=== PATIENT | male | born 1950 | race American Indian/Alaskan Native ===

== ENCOUNTER 2020-04-08 10:50 | Outpatient (CLI) | payer BC, MEDICARE ==
--- NOTE | 2020-04-08 13:17 | Cat Scan Report ---
CT ABDOMEN AND PELVIS WITHOUT CONTRAST INDICATION / CLINICAL INFORMATION: R97.2 R31.0 GROSS HEMATURIA AND ELEVATED PSA. TECHNIQUE: Axial CT images were obtained through the abdomen and pelvis without IV contrast. All CT scans at this location are performed using CT dose reduction for ALARA by means of automated exposure control. COMPARISON: 08/20/2015 FINDINGS: LOWER CHEST: Unremarkable LIVER: Unremarkable GALLBLADDER/BILIARY TREE: Unremarkable PANCREAS: Unremarkable SPLEEN: Unremarkable ADRENALS: Unremarkable KIDNEYS / URETER: No urolithiasis or hydronephrosis. URINARY BLADDER: Bladder is partially decompressed, though grossly unremarkable. REPRODUCTIVE ORGANS: Prostate is markedly enlarged, measuring 7.3 cm transverse. There is median lobe hypertrophy with suggestion of TURP defect. STOMACH / SMALL BOWEL: Stomach and small bowel are normal in caliber. No evidence of bowel inflammati on. COLON: Colonic diverticulosis without evidence of diverticulitis. The appendix is normal in caliber. LYMPH NODES: No significant adenopathy. VASCULATURE: Moderate atherosclerotic calcification without acute abnormality. OTHER: No free air, free fluid, or focal fluid collection is identified. SKELETAL SYSTEM: Extensive degenerative changes of the spine. No acute osseous findings. IMPRESSION: 1. No acute process. No urolithiasis or hydronephrosis. 2. Marked prostatomegaly, measuring 7.3 cm. There is median lobe hypertrophy with suggestion of TURP defect. 3. Other incidental findings as above. Signer Name: oYni Dunn MD Signed: 04/08/2020 1:13 PM Workstation Name: [id number]
== END 2020-04-08 10:51 | disposition home or self-care (01) ==
LOC: CT 10:50
PROVIDERS: ATTEND Urology
DX: N40.0 Benign prostatic hyperplasia without lower urinary tract symptoms (principal); K57.30 Diverticulosis of large intestine without perforation or abscess without bleeding; I70.0 Atherosclerosis of aorta; M47.816 Spondylosis without myelopathy or radiculopathy, lumbar region
CPT/HCPCS: 74176

== ENCOUNTER 2020-06-18 12:00 | Outpatient (CLI) | payer BC, MEDICARE ==
[2020-06-18 15:37] VITALS: BP 176/75
[2020-06-23] MEDS ORDERED: LACTATED RINGERS 1,000 ML IV SCH (06:00)
== END 2020-06-18 14:00 | disposition home or self-care (01) ==
LOC: LAB 12:00 → EDSTATUS 06-23 14:30
PROVIDERS: ATTEND Urology
DX: Z20.822 Contact with and (suspected) exposure to COVID-19 (principal); Z86.19 Personal history of other infectious and parasitic diseases; Z53.8 Procedure and treatment not carried out for other reasons
CPT/HCPCS: U0003

== ENCOUNTER 2020-12-06 07:27 | Observation (INO) | payer BC, MEDICARE ==
[2020-12-02 10:32] LABS: Hematocrit 31.9 % (35.5-45.6); Hemoglobin 10.4 gm/dl (11.8-15.2); Mean Corpuscular HGB Conc 33 % (32-34); Mean Corpuscular Volume 81 fl (84-94); Platelet Count 239 K/mm3 (140-440); Red Blood Count 3.93 M/mm3 (3.65-5.03); Red Cell Distribution Width 13.7 % (13.2-15.2)
[2020-12-02 10:41] LABS: Alanine Aminotransferase 13 units/L (7-56); Albumin 3.9 g/dL (3.9-5); BUN/Creatinine Ratio 14; Blood Urea Nitrogen 11 mg/dL (9-20); Hemolysis Index 6
[~2020-12-06 07:27] MED LIST: ACETAMINOPHEN 500 MG TAB PO SCH; LACTATED RINGERS 1,000 ML IV SCH
[2020-12-06] MEDS ORDERED: ONDANSETRON 4 MG/2 ML INJ IV PRN ×2 (08:07→12:00)
--- NOTE | 2020-12-06 08:10 | Anesthesia Consultation ---
Anesthesia Consult and Med Hx Date of service: 12/06/20 - Airway Anesthetic Teeth Evaluation: Partials ROM Head & Neck: Adequate Mental/Hyoid Distance: Adequate Mallampati Class: Class III Intubation Access Assessment: Possibly Difficult (previous LMA 5) - Pre-Operative Health Status ASA Pre-Surgery Classification: ASA3 Proposed Anesthetic Plan: General - Pulmonary Hx Smoking: No Hx Respiratory Symptoms: No Hx Sleep Apnea: Yes (noted in chart review but patient denies; no CPAP) - Cardiovascular System Hx Hypertension: Yes (took antihypertensives this morning) Hx Heart Attack/AMI: No Hx Percutaneous Transluminal Coronary Angioplasty (PTCA): No Hx Cardia Arrhythmia: No - Central Nervous System CVA: No Hx Back Pain: Yes - Endocrine Hx Renal Disease: No Hx Liver Disease: No Hx Non-Insulin Dependent Diabetes: Yes Hx Thyroid Disease: No - Hematic Hx Anemia: Yes - Other Systems Hx Cancer: Yes (hx prostate/bladder ca noted in chart review) - Additional Comments Anesthesia Medical History Comments: No hx anesthetic complications.
--- NOTE | 2020-12-06 08:10 | Anesthesia Day of Surgery ---
Anesthesia Day of Surgery - Day of Surgery Patient Examined: Yes Patient H&P Reviewed: Yes Patient is NPO: Yes
[2020-12-06] MEDS ORDERED: ceFAZolin/STERILE WATER 2 GM/20 ML SYRINGE IV NR (09:00)
[2020-12-06] MEDS ORDERED: propofoL 200 MG/20 ML VIAL IV ONE (09:23)
[2020-12-06] MEDS ORDERED: KETAMINE/STERILE WATER 50 MG/ML SYRINGE ONE ×2 (09:41→10:53)
[2020-12-06] MEDS ORDERED: ePHEDrine SULFATE 50 MG/1 ML INJ ONE (09:41)
[2020-12-06] MEDS ORDERED: METHYLENE BLUE 50 MG/10 ML AMP ONE ×2 (09:48→09:56)
[2020-12-06] MEDS ORDERED: SODIUM CHLORIDE 0.9% IRRIG SOLN 2000 ML IR ONE (10:45)
--- NOTE | 2020-12-06 10:50 | Ultrasound Report ---
Ultrasound Transrectal INDICATION / CLINICAL INFORMATION: ELEVATED PSA. COMPARISON: None available. FINDINGS: Sonographic guidance was provided by the technologist during prostate biopsy. 6 images were obtained. No unexpected intraoperative findings. Please see procedure note for details. Signer Name: Bentley Cordero MD Signed: 12/06/2020 10:46 AM Workstation Name: [id number]
[2020-12-06] MEDS ORDERED: dexAMETHasone 20 MG/5 ML VIAL ONE (10:53)
[2020-12-06] MEDS ORDERED: ONDANSETRON 4 MG/2 ML INJ ONE (10:53)
[2020-12-06] MEDS ORDERED: WATER FOR IRRIG STERILE 2000 ML IR ONE (10:58)
[2020-12-06] MEDS ORDERED: MANNITOL/SORBITOL SOLUTION 3,000 ML IRRIG.SOLN IR ONE (10:59)
[2020-12-06] MEDS ORDERED: IOHEXOL 240 MG/ML 200 ML IRRIGATION ONE (10:59)
[2020-12-06] MEDS: HYDROmorphone 1 MG/1 ML INJ IV PRN ×3 (11:19→12:03)
--- NOTE | 2020-12-06 11:28 | Post Operative Note ---
Date of procedure: 12/06/20 Pre-op diagnosis: hematuria Post-op diagnosis: same Findings: necrotic debris Procedure: pux with us turp cysto Anesthesia: GETA Surgeon: MAGDALENO ABARCA Estimated blood loss: minimal Pathology: list (prostate and urine) Specimen disposition: to lab Condition: stable Disposition: PACU
[2020-12-06] MEDS ORDERED: oxyCODONE /ACETAMINOPHEN 5-325MG TAB PO PRN (12:00)
[2020-12-06] MEDS ORDERED: ACETAMINOPHEN 325 MG TAB PO PRN (12:00)
--- NOTE | 2020-12-06 12:26 | Post Anesthesia Evaluation ---
- Post Anesthesia Evaluation Patient Participated: Yes Airway Patent: Yes Stable Respiratory Function: Yes Nausea/Vomiting: No Temp > 96.8F: Yes Pain Manageable: Yes Adequeate Hydration: Yes Anesthesia Complications: No
[2020-12-06] MEDS: D5W/0.45% NACL/KCL 20 MEQ 20 MEQ/1,000 ML BAG IV SCH ×2 (12:38→19:20)
--- NOTE | 2020-12-06 14:33 | Operative Report ---
DATE OF SURGERY: 12/06/2020 PREOPERATIVE DIAGNOSES: Gross hematuria and anemia. POSTOPERATIVE DIAGNOSIS: Necrotic tissue, left side bladder neck towards the trigone with increased prostate-specific antigen. PROCEDURES: Transrectal ultrasound-guided biopsy of the prostate, transurethral resection of necrotic tissue, orifices not well seen. FINDINGS: This is a gentleman with gross hematuria. He has been lost to follow up a few years, then came back, started having bleeding and clots. He now presents for evaluation. DESCRIPTION OF PROCEDURE: The patient was brought to the operating room and placed on the operating table. Following induction of anesthesia, placed in lithotomy position, prepped and draped in usual sterile fashion. Cystoscopy was started, the lenses were broken. We used the transrectal ultrasound and did 4 biopsies of each side of approximately 107 gram prostate. There were no localized defects. Once we got the right lens cystoscopy, we could not see the trigone, there was a lot of inflammation necrotic tissue, especially on the left side of the bladder neck. It was oozing and actively bleeding. At this point, the visual obturator was used. The resectoscope was placed and we resected mostly laterally and anteriorly of the necrotic tissue. Once all that was removed, we thought we saw the orifices, did not want to manipulate it. We did not resect the orifices, but they were somewhere around the inflammatory process. We will await the final pathology. We had given blue, did not see any blue, but his creatinine is normal. The patient tolerated the procedure well and there was no significant bleeding. A 3-way Curtis was started. Catheter was in good position on fluoroscopy, brought to recovery in stable condition. TID: [id number] RECEIPT: [id number] CRYSTAL/DL/BEBE
[2020-12-06] MEDS ORDERED: SODIUM CHLORIDE IRRI 1000 ML 1,000 ML IR ONE (15:10)
--- NOTE | 2020-12-06 15:53 | XRay Report ---
INTRAOPERATIVE FLUOROSCOPY: CYSTOGRAM INDICATION / CLINICAL INFORMATION: GROSS HEMATURIA. TECHNIQUE: Intraoperative spot images were obtained during the procedure. FINDINGS: 3 intraprocedural images from urinary bladder cystogram are demonstrated. Shannon catheter with contras t infusion into the urinary bladder is noted. Multilevel degenerative changes of the lumbar spine are noted. Fluoroscopy Time: 5 seconds. Fluoroscopy Images: 3. Signer Name: Andres Morel MD Signed: 12/06/2020 3:48 PM Workstation Name: [id number]
[2020-12-06] MEDS: ceFAZolin/NS 1 GM/50 ML 1 GM/50 ML BAG IV SCH ×2 (17:04→23:58)
[2020-12-06] MEDS: SODIUM CHLORIDE 0.9% IRRIG SOLN 2000 ML IR SCH ×3 (19:56→23:59)
[2020-12-06] MEDS ORDERED: ZOLPIDEM 5 MG TAB PO PRN (22:00)
[2020-12-07] MEDS: DOCUSATE SODIUM 100 MG CAP PO SCH ×2 (00:27→09:53)
[2020-12-07] MEDS: INSULIN LISPRO 100 UNIT/ML SUB-Q SCH ×2 (00:28→09:53)
[2020-12-07] MEDS: SODIUM CHLORIDE 0.9% IRRIG SOLN 2000 ML IR SCH ×4 (02:55→08:58)
[2020-12-07] MEDS: D5W/0.45% NACL/KCL 20 MEQ 20 MEQ/1,000 ML BAG IV SCH (04:14)
[2020-12-07] MEDS ORDERED: metFORMIN 500 MG TAB PO SCH (08:00)
[2020-12-07 08:03] LABS: Basophils % (Auto) 0.1 % (0.0-1.8); Hematocrit 27.8 % (35.5-45.6); Hemoglobin 8.9 gm/dl (11.8-15.2); Lymphocytes # (Auto) 0.9 K/mm3 (1.2-5.4); Lymphocytes % (Auto) 9.5 % (13.4-35.0); Mean Corpuscular HGB Conc 32 % (32-34); Mean Corpuscular Volume 82 fl (84-94); Monocytes # (Auto) 0.8 K/mm3 (0.0-0.8); Monocytes % (Auto) 8.4 % (0.0-7.3); Platelet Count 180 K/mm3 (140-440); Red Blood Count 3.39 M/mm3 (3.65-5.03)
[2020-12-07 08:10] VITALS: BP 155/76
[2020-12-07 08:23] LABS: Blood Urea Nitrogen 8 mg/dL (9-20); Hemolysis Index 4
[2020-12-07 08:40] LABS: BUN/Creatinine Ratio 11
[2020-12-07] MEDS: ceFAZolin/NS 1 GM/50 ML 1 GM/50 ML BAG IV SCH (09:53)
--- NOTE | 2020-12-07 12:25 | Progress Note ---
Assessment and Plan looks great labs were drawn cath clear Subjective Date of service: 12/07/20 Principal diagnosis: hematuria Objective - Constitutional Vitals: Vital Signs - 12hr 12/07/20 12/07/20 12/07/20 03:00 03:22 04:41 Temperature 97.8 F Pulse Rate 66 Respiratory 17 18 Rate Blood Pressure Blood Pressure 136/78 [Left] O2 Sat by Pulse 99 97 Oximetry 12/07/20 07:41 Temperature 97.9 F Pulse Rate 63 Respiratory 16 Rate Blood Pressure 155/76 Blood Pressure [Left] O2 Sat by Pulse 98 Oximetry General appearance: Present: no acute distress - Neck Neck: supple - Respiratory Respiratory effort: normal - Gastrointestinal General gastrointestinal: Present: soft, non-tender - Labs CBC & Chem 7: 12/07/20 07:34 12/07/20 09:03 Labs: Abnormal lab results 12/06/20 12/07/20 12/07/20 Range/Units 20:47 00:20 07:34 RBC 3.39 L (3.65-5.03) M/mm3 Hgb 8.9 L (11.8-15.2) gm/dl Hct 27.8 L (35.5-45.6) % MCV 82 L (84-94) fl MCH 26 L (28-32) pg Lymph % (Auto) 9.5 L (13.4-35.0) % Rankin % (Auto) 8.4 H (0.0-7.3) % Lymph # (Auto) 0.9 L (1.2-5.4) K/mm3 Seg Neutrophils % 82.0 H (40.0-70.0) % Sodium (137-145) mmol/L Potassium (3.6-5.0) mmol/L BUN (9-20) mg/dL Creatinine (0.8-1.3) mg/dL Glucose (75-100) mg/dL POC Glucose 221 H 164 H (70-105) mg/dL Calcium (8.4-10.2) mg/dL 12/07/20 12/07/20 12/07/20 Range/Units 07:34 07:36 08:10 RBC (3.65-5.03) M/mm3 Hgb (11.8-15.2) gm/dl Hct (35.5-45.6) % MCV (84-94) fl MCH (28-32) pg Lymph % (Auto) (13.4-35.0) % Rankin % (Auto) (0.0-7.3) % Lymph # (Auto) (1.2-5.4) K/mm3 Seg Neutrophils % (40.0-70.0) % Sodium 128 L (137-145) mmol/L Potassium 7.7 H* (3.6-5.0) mmol/L BUN 8 L (9-20) mg/dL Creatinine 0.7 L (0.8-1.3) mg/dL Glucose 743 H* 121 H (75-100) mg/dL POC Glucose > 600 H (70-105) mg/dL Calcium 7.0 L (8.4-10.2) mg/dL 12/07/20 12/07/20 Range/Units 08:49 09:03 RBC (3.65-5.03) M/mm3 Hgb (11.8-15.2) gm/dl Hct (35.5-45.6) % MCV (84-94) fl MCH (28-32) pg Lymph % (Auto) (13.4-35.0) % Rankin % (Auto) (0.0-7.3) % Lymph # (Auto) (1.2-5.4) K/mm3 Seg Neutrophils % (40.0-70.0) % Sodium (137-145) mmol/L Potassium (3.6-5.0) mmol/L BUN (9-20) mg/dL Creatinine (0.8-1.3) mg/dL Glucose 106 H (75-100) mg/dL POC Glucose 109 H (70-105) mg/dL Calcium (8.4-10.2) mg/dL Medications & Allergies - Medications Allergies/Adverse Reactions: Allergies quinine Allergy (Verified 06/15/20 16:47) Itching Home Medications: Home Medications Medication Instructions Recorded Confirmed Last Taken Type Amlodipine Besylate/Benazepril 1 tab PO BID 10/11/15 12/06/20 12/06/20 05:00 History [Amlodipine-Benazepril 5-20 mg] Doxazosin Mesylate [Cardura] 2 mg PO DAILY 10/11/15 12/06/20 12/06/20 05:00 History Metformin HCl 500 mg PO BID 10/11/15 12/06/20 12/05/20 18:00 History Active Medications: Generic Name Dose Route Start Last Admin Trade Name Karan PRN Reason Stop Dose Admin Acetaminophen 650 mg 12/06/20 12:00 Acetaminophen 325 Mg Tab PO Q4H PRN Pain, Mild (1-3)/Fever > 100.5 Docusate Sodium 100 mg 12/06/20 22:00 12/07/20 09:53 Docusate Sodium 100 Mg Cap PO 100 mg BID QUETA Administration Potassium Chloride/Dextrose/Sod Cl 20 meq in 1,000 mls @ 125 mls/hr 12/06/20 12:00 12/07/20 04:14 D5w/0.45% Nacl/Kcl 20 Meq IV 125 mls/hr DIRECT QUETA Administration Cefazolin Sodium 1 gm in 50 mls @ 100 mls/hr 12/06/20 16:00 12/07/20 09:53 Ancef/Ns 1 Gm/50 Ml IV 12/08/20 08:29 100 mls/hr Q8H QUETA Administration Protocol Insulin Human Lispro 0 unit 12/07/20 00:10 12/07/20 09:53 Insulin Lispro 100 Unit/Ml SUB-Q Not Given ACHS QUETA Protocol Metformin HCl 500 mg 12/07/20 08:00 12/07/20 09:53 Metformin 500 Mg Tab PO 500 mg BIDDIAB QUETA Administration Ondansetron HCl 4 mg 12/06/20 12:00 Ondansetron 4 Mg/2 Ml Inj IV Q8H PRN Nausea And Vomiting Oxycodone/Acetaminophen 2 tab 12/06/20 12:00 12/07/20 03:22 Oxycodone /Acetaminophen 5-325mg Tab PO 2 tab Q6H PRN Administration Pain, Moderate (4-6) Sodium Chloride 2,000 ml 12/06/20 12:00 12/07/20 08:58 Sodium Chloride 0.9% Irrig Soln 2000 Ml IR 2,000 ml DIRECT QUETA Administration Zolpidem Tartrate 5 mg 12/06/20 22:00 Zolpidem 5 Mg Tab PO QHS PRN Sleep
--- NOTE | 2020-12-07 12:26 | Discharge Summary ---
Short Stay Discharge Plan Activity: other (cath care no straining ) Weight Bearing Status: Full Weight Bearing Diet: low fat, low cholesterol, low salt Special Instructions: other (inc fluids ) Durable Medical Equipment Needed Upon Discharge: other Follow up with: SHIRLEY YAP MD [Primary Care Provider] - 7 Days MAGDALENO ABARCA MD [Staff Physician] - 7 Days
== END 2020-12-07 14:00 | disposition home or self-care (01) ==
LOC: OR 07:27 → 3B-SURG 11:29
PROVIDERS: ADMIT Urology; ATTEND Urology
DX: R31.0 Gross hematuria (principal); Z20.822 Contact with and (suspected) exposure to COVID-19; R33.8 Other retention of urine
CPT/HCPCS: 36415; 52601; 74018; 76872; 80048; 80053; 82947; 82962; 84132; 85025; 85027; 88112; 88305; 96361; 96365; 96366; A4217; G0378; J0690; J1100; J1170; J2405; J2704; J3490; J7120; Q9967; Q9968; U0003